=== PATIENT | male | born 1955 | race Caucasian/White ===

== ENCOUNTER 2018-11-25 19:59 | Inpatient (IN) | payer MEDICARE, MEDICAID ==
[2018-11-25] MEDS: KETOROLAC 30 MG INJ IM (20:30)
[2018-11-25 22:53] LABS: ADD MAN DIFF? NO
[2018-11-25 22:54] LABS: BASOPHILS % 0.2 % (0.0-2.0); EOSINOPHILS % 0.3 % (0.0-7.0); HEMATOCRIT 42.3 % (42.0-52.0); HEMOGLOBIN 14.6 g/dl (14.0-18.0); LYMPHOCYTES # 0.9 10^3/ul (0.8-2.9); LYMPHOCYTES % 14.6 % (15.0-51.0); MEAN CORPUSCULAR HEMOGLOBIN 29.3 pg (29.0-33.0); MEAN CORPUSCULAR HGB CONC 34.5 g/dl (32.0-37.0); MEAN CORPUSCULAR VOLUME 84.9 fl (82.0-101.0); MEAN PLATELET VOLUME 12.3 fl (7.4-10.4); MONOCYTE # 0.5 10^3/ul (0.3-0.9); MONOCYTES % 7.6 % (0.0-11.0); NEUTROPHIL # 4.9 10^3/ul (1.6-7.5); NEUTROPHILS % 76.5 % (39.0-77.0); PLATELET COUNT 161 10^3/UL (140-415); RED BLOOD COUNT 4.98 10^6/ul (4.70-6.10)
[2018-11-25 22:54] LABS: WHITE BLOOD COUNT 6.4 10^3/ul (4.8-10.8)
[2018-11-25] MEDS ORDERED: CEFTRIAXONE 1 GM INJ IM (23:00)
[2018-11-25] MEDS ORDERED: LIDOCAINE 1% (MPF) 5 ML VIAL INFIL (23:00)
[2018-11-25] MEDS: CEFTRIAXONE 1 GM/50 ML (PMX) 50 ML IVPB (23:04)
[2018-11-25 23:15] LABS: ALANINE AMINOTRANSFERASE 25 IU/L (13-69); ALBUMIN 3.9 g/dl (3.3-4.9); ALBUMIN/GLOBULIN RATIO 1.62; ALKALINE PHOSPHATASE 209 IU/L (42-121); ANION GAP 11 (5-13); ASPARTATE AMINO TRANSFERASE 16 IU/L (15-46); BILIRUBIN,INDIRECT 0.4 mg/dl (0-1.1); BILIRUBIN,TOTAL 0.4 mg/dl (0.2-1.3); BLOOD UREA NITROGEN 33 mg/dl (7-20); CALCIUM 9.6 mg/dl (8.4-10.2); CARBON DIOXIDE 27 mmol/L (21-31); CHLORIDE 96 mmol/L (97-110); CREATININE 1.44 mg/dl (0.61-1.24); Estimated GFR 50 mL/min (>60); SODIUM 134 mmol/L (135-144); TOTAL PROTEIN 6.3 g/dl (6.1-8.1)
[2018-11-25] MEDS: ONDANSETRON (ODT) 4 MG TAB ODT (23:16)
[2018-11-25] MEDS: HYDROCODONE/APAP (5/325) TAB PO (23:16)
[2018-11-25 23:27] LABS: GLUCOSE 770 mg/dl (70-220)
[2018-11-25] MEDS: SOD CHLORIDE 0.9% 1,000 ML IV (23:45)
[2018-11-25] MEDS: INSULIN LISPRO 100 UNIT/ML VIAL SC (23:55)
[2018-11-26 00:15] LABS: ACETONE NEGATIVE (NEGATIVE)
[2018-11-26] MEDS: INSULIN REGULAR, HUMAN 100 UNIT/1 ML 3ML VIAL IV (00:39)
[2018-11-26 01:08] LABS: ADD UMIC NO; UR ASCORBIC ACID NEGATIVE (NEGATIVE); UR BILIRUBIN (Dip) NEGATIVE (NEGATIVE); UR BLOOD (Dip) NEGATIVE (NEGATIVE); UR CLARITY CLEAR (CLEAR); UR COLOR STRAW (YELLOW); UR GLUCOSE (Dip) 3+ mg/dL (NEGATIVE); UR KETONES (Dip) NEGATIVE (NEGATIVE); UR LEUKOCYTE ESTERASE (Dip) NEGATIVE Leu/ul (NEGATIVE); UR NITRITE (Dip) NEGATIVE (NEGATIVE); UR SPECIFIC GRAVITY (Dip) 1.025 (1.003-1.030); UR TOTAL PROTEIN (Dip) NEGATIVE (NEGATIVE); UR UROBILINOGEN (Dip) NEGATIVE (NEGATIVE)
[2018-11-26] MEDS ORDERED: GLUCOSE GEL 15 GRAM TUBE BUCCAL (02:30)
[2018-11-26] MEDS ORDERED: GLUCAGON 1 MG INJ IM (02:30)
[2018-11-26] MEDS ORDERED: HYDROCODONE/APAP (5/325) TAB PO (02:30)
[2018-11-26] MEDS: INSULIN GLARGINE [LANTus] (100 UNITS/ML) SYG SC ×2 (02:30→09:25)
[2018-11-26] MEDS ORDERED: VANCOMYCIN IV PER PHARMACY XX (02:30)
[2018-11-26] MEDS ORDERED: ALBUTEROL/IPRATROPIUM (NEB) 3 ML AMP HHN (02:30)
[2018-11-26] MEDS ORDERED: ONDANSETRON 4 MG INJ IV (02:30)
[2018-11-26] MEDS ORDERED: DEXTROSE 50% 50 ML SYRINGE IV ×2 (02:30)
[2018-11-26] MEDS ORDERED: GLUCOSE GEL 15 GRAM TUBE PO ×2 (02:30)
[2018-11-26] MEDS ORDERED: ACETAMINOPHEN 325 MG TAB PO (02:30)
[2018-11-26] MEDS ORDERED: NACL 0.9% 3 ML SYG IV (02:30)
[2018-11-26] MEDS: VANCOMYCIN 1.5 GM/NS 250 ML 250 ML IVPB (04:00)
[2018-11-26] MEDS: SOD CHLORIDE 0.9% 1,000 ML IV ×4 (04:00→21:56)
[2018-11-26] MEDS: METOPROLOL 25 MG TAB PO ×3 (04:01→20:57)
[2018-11-26] MEDS: INSULIN ASPART [NOVOLOG] 3 ML PEN SC ×3 (05:31→21:15)
[2018-11-26 06:11] LABS: ADD MAN DIFF? NO
[2018-11-26 06:23] LABS: WHITE BLOOD COUNT 5.8 10^3/ul (4.8-10.8)
[2018-11-26 06:23] LABS: BASOPHILS % 0.2 % (0.0-2.0); EOSINOPHILS % 0.5 % (0.0-7.0); HEMATOCRIT 40.4 % (42.0-52.0); HEMOGLOBIN 13.8 g/dl (14.0-18.0); LYMPHOCYTES # 1.4 10^3/ul (0.8-2.9); LYMPHOCYTES % 23.5 % (15.0-51.0); MEAN CORPUSCULAR HEMOGLOBIN 29.3 pg (29.0-33.0); MEAN CORPUSCULAR HGB CONC 34.2 g/dl (32.0-37.0); MEAN CORPUSCULAR VOLUME 85.8 fl (82.0-101.0); MONOCYTE # 0.6 10^3/ul (0.3-0.9); MONOCYTES % 10.4 % (0.0-11.0); NEUTROPHIL # 3.7 10^3/ul (1.6-7.5); NEUTROPHILS % 64.4 % (39.0-77.0); PLATELET COUNT 137 10^3/UL (140-415); RED BLOOD COUNT 4.71 10^6/ul (4.70-6.10); RED CELL DISTRIBUTION WIDTH 12.9 % (11.5-14.5)
[2018-11-26 06:53] LABS: HEMOGLOBIN A1C 13.3 % (0-5.9)
[2018-11-26 06:56] LABS: ALANINE AMINOTRANSFERASE 21 IU/L (13-69); ALBUMIN 3.4 g/dl (3.3-4.9); ALBUMIN/GLOBULIN RATIO 1.47; ALKALINE PHOSPHATASE 146 IU/L (42-121); ANION GAP 9 (5-13); ASPARTATE AMINO TRANSFERASE 16 IU/L (15-46); BILIRUBIN,INDIRECT 0.4 mg/dl (0-1.1); BILIRUBIN,TOTAL 0.4 mg/dl (0.2-1.3); BLOOD UREA NITROGEN 30 mg/dl (7-20); CALCIUM 9.4 mg/dl (8.4-10.2); CARBON DIOXIDE 27 mmol/L (21-31); CHLORIDE 103 mmol/L (97-110); CHOL/HDL RATIO 5.7 RATIO; CHOLESTEROL 149 mg/dl (100-200); CREATININE 1.15 mg/dl (0.61-1.24); Estimated GFR > 60 mL/min (>60); GLUCOSE 262 mg/dl (70-220); HDL CHOLESTEROL 26 mg/dl (30-78); MAGNESIUM 1.8 mg/dl (1.7-2.5); POTASSIUM 4.2 mmol/L (3.5-5.1); SODIUM 139 mmol/L (135-144); TOTAL PROTEIN 5.7 g/dl (6.1-8.1); TRIGLYCERIDES 280 mg/dl (0-149)
[2018-11-26 06:57] LABS: LDL CHOLESTEROL,CALCULATED 67 mg/dl
[2018-11-26] MEDS: SEVELAMER CARBONATE 0.8 GM PKT PO ×3 (07:43→18:03)
[2018-11-26] MEDS ORDERED: SEVELAMER CARBONATE 0.8 GM PKT PO (07:55)
[2018-11-26] MEDS: CEFEPIME 1GM/50 ML (PMX) 50 ML IVPB ×2 (08:55→20:56)
[2018-11-26] MEDS: predniSONE 10 MG TAB PO (08:58)
[2018-11-26] MEDS: TACROLIMUS 1 MG CAP PO ×2 (08:58→20:56)
[2018-11-26] MEDS: MYCOPHENOLATE 250 MG CAP PO ×2 (08:58→20:56)
[2018-11-26] MEDS: HEPARIN 5,000 UNIT/1 ML VIAL SC ×2 (09:26→20:58)
[2018-11-26] MEDS: hydrALAzine 20 MG INJ IV (13:12)
[2018-11-26] MEDS: LORAZEPAM 2 MG INJ IV (14:30)
[2018-11-26] MEDS ORDERED: INSULIN ASPART [NOVOLOG] 3 ML PEN SC (17:25)
[2018-11-26] MEDS: Insulin NOVOLOG SS MODERATE Algorithm (SS with meals and bedtime) SC ×2 (18:03→21:00)
[2018-11-26] MEDS: ACCU-CHEK XX ×2 (23:18)
[2018-11-27] MEDS: ACCU-CHEK XX (01:43)
[2018-11-27] MEDS: SOD CHLORIDE 0.9% 1,000 ML IV ×4 (02:31→21:08)
[2018-11-27] MEDS: VANCOMYCIN 1.25 GM/NS 250 ML 250 ML IVPB (04:05)
[2018-11-27 05:24] LABS: ADD MAN DIFF? NO
[2018-11-27 05:28] LABS: WHITE BLOOD COUNT 5.8 10^3/ul (4.8-10.8)
[2018-11-27 05:28] LABS: BASOPHILS % 0.2 % (0.0-2.0); EOSINOPHILS % 0.3 % (0.0-7.0); HEMATOCRIT 43.7 % (42.0-52.0); HEMOGLOBIN 14.7 g/dl (14.0-18.0); LYMPHOCYTES # 1.2 10^3/ul (0.8-2.9); LYMPHOCYTES % 21.3 % (15.0-51.0); MEAN CORPUSCULAR HEMOGLOBIN 29.1 pg (29.0-33.0); MEAN CORPUSCULAR HGB CONC 33.6 g/dl (32.0-37.0); MEAN CORPUSCULAR VOLUME 86.4 fl (82.0-101.0); MEAN PLATELET VOLUME 12.3 fl (7.4-10.4); MONOCYTE # 0.4 10^3/ul (0.3-0.9); MONOCYTES % 6.9 % (0.0-11.0); NEUTROPHIL # 4.1 10^3/ul (1.6-7.5); NEUTROPHILS % 70.4 % (39.0-77.0); PLATELET COUNT 141 10^3/UL (140-415); RED BLOOD COUNT 5.06 10^6/ul (4.70-6.10); RED CELL DISTRIBUTION WIDTH 13.3 % (11.5-14.5)
[2018-11-27 05:47] LABS: ANION GAP 7 (5-13); BLOOD UREA NITROGEN 24 mg/dl (7-20); CALCIUM 9.4 mg/dl (8.4-10.2); CARBON DIOXIDE 23 mmol/L (21-31); CHLORIDE 111 mmol/L (97-110); CREATININE 1.12 mg/dl (0.61-1.24); Estimated GFR > 60 mL/min (>60); GLUCOSE 202 mg/dl (70-220); MAGNESIUM 1.8 mg/dl (1.7-2.5); PHOSPHORUS 3.8 mg/dl (2.5-4.9); SODIUM 141 mmol/L (135-144)
[2018-11-27] MEDS: SEVELAMER CARBONATE 0.8 GM PKT PO ×3 (07:35→17:11)
[2018-11-27] MEDS: Insulin NOVOLOG SS MODERATE Algorithm (SS with meals and bedtime) SC (08:00)
[2018-11-27] MEDS: INSULIN GLARGINE [LANTus] (100 UNITS/ML) SYG SC (08:00)
[2018-11-27] MEDS: HEPARIN 5,000 UNIT/1 ML VIAL SC ×2 (09:00→21:15)
[2018-11-27] MEDS: predniSONE 10 MG TAB PO (09:23)
[2018-11-27] MEDS: TACROLIMUS 1 MG CAP PO ×2 (09:23→21:04)
[2018-11-27] MEDS: MYCOPHENOLATE 250 MG CAP PO ×2 (09:24→21:07)
[2018-11-27] MEDS: METOPROLOL 25 MG TAB PO ×2 (09:24→21:10)
[2018-11-27] MEDS: CEFEPIME 1GM/50 ML (PMX) 50 ML IVPB ×2 (09:24→21:08)
[2018-11-27] MEDS: LISINOPRIL 10 MG TAB PO (10:01)
[2018-11-27] MEDS ORDERED: INSULIN ASPART [NOVOLOG] 3 ML PEN SC (13:00)
[2018-11-27] MEDS: INSULIN ASPART [NOVOLOG] 3 ML PEN SC ×3 (13:04→21:15)
[2018-11-27] MEDS ORDERED: ROPIVACAINE 0.2% 20 ML VIAL (17:13)
[2018-11-27] MEDS ORDERED: MIDAZOLAM 1 MG/ML 2 ML INJ (17:13)
[2018-11-27] MEDS ORDERED: SEVOFLURANE 15 MIN (17:30)
[2018-11-27] MEDS ORDERED: hydrALAzine 20 MG INJ (17:44)
[2018-11-27] MEDS ORDERED: FENTAnyl 50 MCG/ML VIAL (17:48)
[2018-11-27] MEDS ORDERED: HYDROCODONE/APAP (5/325) TAB PO (19:00)
[2018-11-28] MEDS: morphine 4 MG/ML VIAL IV (01:51)
[2018-11-28] MEDS: ACCU-CHEK XX (01:53)
[2018-11-28] MEDS: VANCOMYCIN 1.25 GM/NS 250 ML 250 ML IVPB (03:38)
[2018-11-28] MEDS: HYDROCODONE/APAP (5/325) TAB PO (03:45)
[2018-11-28] MEDS: SOD CHLORIDE 0.9% 1,000 ML IV ×2 (04:45→07:00)
[2018-11-28 05:53] LABS: ADD MAN DIFF? NO
[2018-11-28 05:57] LABS: WHITE BLOOD COUNT 5.7 10^3/ul (4.8-10.8)
[2018-11-28 05:57] LABS: BASOPHILS % 0.2 % (0.0-2.0); EOSINOPHILS % 0.4 % (0.0-7.0); HEMATOCRIT 42.6 % (42.0-52.0); HEMOGLOBIN 14.1 g/dl (14.0-18.0); LYMPHOCYTES # 1.3 10^3/ul (0.8-2.9); LYMPHOCYTES % 23.1 % (15.0-51.0); MEAN CORPUSCULAR HGB CONC 33.1 g/dl (32.0-37.0); MEAN CORPUSCULAR VOLUME 87.5 fl (82.0-101.0); MEAN PLATELET VOLUME 12.2 fl (7.4-10.4); MONOCYTE # 0.5 10^3/ul (0.3-0.9); MONOCYTES % 7.9 % (0.0-11.0); NEUTROPHIL # 3.9 10^3/ul (1.6-7.5); NEUTROPHILS % 67.9 % (39.0-77.0); PLATELET COUNT 138 10^3/UL (140-415); RED BLOOD COUNT 4.87 10^6/ul (4.70-6.10); RED CELL DISTRIBUTION WIDTH 13.5 % (11.5-14.5)
[2018-11-28 06:26] LABS: ANION GAP 7 (5-13); BLOOD UREA NITROGEN 19 mg/dl (7-20); CALCIUM 9.1 mg/dl (8.4-10.2); CARBON DIOXIDE 23 mmol/L (21-31); CHLORIDE 109 mmol/L (97-110); CREATININE 1.06 mg/dl (0.61-1.24); Estimated GFR > 60 mL/min (>60); GLUCOSE 208 mg/dl (70-220); MAGNESIUM 1.6 mg/dl (1.7-2.5); PHOSPHORUS 3.6 mg/dl (2.5-4.9); POTASSIUM 4.2 mmol/L (3.5-5.1); SODIUM 139 mmol/L (135-144)
[2018-11-28] MEDS: MYCOPHENOLATE 250 MG CAP PO (08:09)
[2018-11-28] MEDS: predniSONE 10 MG TAB PO (08:09)
[2018-11-28] MEDS: LISINOPRIL 10 MG TAB PO (08:09)
[2018-11-28] MEDS: CEFEPIME 1GM/50 ML (PMX) 50 ML IVPB (08:09)
[2018-11-28] MEDS: TACROLIMUS 1 MG CAP PO (08:09)
[2018-11-28] MEDS: METOPROLOL 25 MG TAB PO (08:10)
[2018-11-28] MEDS: HEPARIN 5,000 UNIT/1 ML VIAL SC (08:11)
[2018-11-28] MEDS: INSULIN GLARGINE [LANTus] (100 UNITS/ML) SYG SC (08:11)
[2018-11-28] MEDS: INSULIN ASPART [NOVOLOG] 3 ML PEN SC ×3 (08:12→17:11)
[2018-11-28] MEDS: SEVELAMER CARBONATE 0.8 GM PKT PO ×3 (08:13→17:10)
[2018-11-28] MEDS: MAGNESIUM SULFATE 2 GM/50 ML 50 ML IVPB (15:18)
[2018-11-28 16:47] LABS: TACROLIMUS 6.9 mcg/L
== END 2018-11-28 18:32 | disposition home health service (06) | DRG 513 ==
LOC: FTE 19:59 → TEL 11-26 01:10 → PP2 11-26 13:42
PROC: 0X6N0Z2 Detachment at Right Index Finger, Mid, Open Approach (ICD-10-PCS; principal; 2018-11-27 17:00)
DX: M86.141 Other acute osteomyelitis, right hand (principal); N18.6 End stage renal disease; Z94.0 Kidney transplant status; N17.9 Acute kidney failure, unspecified; E87.0 Hyperosmolality and hypernatremia; I12.0 Hypertensive chronic kidney disease with stage 5 chronic kidney disease or end stage renal disease; L03.011 Cellulitis of right finger; M79.644 Pain in right finger(s); E11.8 Type 2 diabetes mellitus with unspecified complications; E11.65 Type 2 diabetes mellitus with hyperglycemia; E11.22 Type 2 diabetes mellitus with diabetic chronic kidney disease; Z86.73 Personal history of transient ischemic attack (TIA), and cerebral infarction without residual deficits; Z91.14 Patient's other noncompliance with medication regimen; I70.298 Other atherosclerosis of native arteries of extremities, other extremity
CPT/HCPCS: 71045; 73140; 73218; 80048; 80053; 80061; 80197; 81003; 82010; 82962; 83036; 83735; 84100; 85025; 88305; 88311; 93005